=== PATIENT | male | born 1950 | race Caucasian/White ===

== ENCOUNTER → 2020-03-28 | Outpatient (CLI) | payer MEDICARE, OTHER ==
[~2020-03-28] MED LIST: HYDROCODON-ACE1 EAC4 PO; IRON325 M1 PO; LOPRESSOR 25 MG25 MG PO; VITAMIN D PO
[2020-03-28 12:10] LABS: HEMOGLOBIN 13.8 gm/dl (14.0-17.5); RED BLOOD COUNT 3.88 M/UL (4.20-5.50); WHITE BLOOD COUNT 5.6 K/UL (4.5-11.0)
[2020-03-28 12:28] LABS: BUN/CREATININE RATIO 22 (0-10)
== END ==
LOC: OPSV2 11:00
PROVIDERS: Orthopaedic Surgery
DX: Z01.818 Encounter for other preprocedural examination (principal); G56.01 Carpal tunnel syndrome, right upper limb; Z20.822 Contact with and (suspected) exposure to COVID-19
CPT/HCPCS: 36415; 80048; 85025; 93005; U0003

== ENCOUNTER → 2020-03-31 | Day surgery (SDC) | payer MEDICARE, OTHER ==
[~2020-03-31] VITALS: Ht 182.9 cm; Wt 71.7 kg
== END | disposition home or self-care (01) ==
LOC: OR 06:11
DX: G56.01 Carpal tunnel syndrome, right upper limb (principal); I10 Essential (primary) hypertension; Z85.118 Personal history of other malignant neoplasm of bronchus and lung; Z79.899 Other long term (current) drug therapy
CPT/HCPCS: J0690; J1100; J2001; J2370; J2405; J2704; J3010; J7120